=== PATIENT | female | born 1980 | race Caucasian/White ===

== ENCOUNTER 2016-09-30 04:08 | Emergency (ER) | payer BC ==
[~2016-09-30] VITALS: Ht 165.1 cm; Wt 99.8 kg
--- NOTE | ~2016-09-30 | CR72 ---
[facility]. [facility] A Service of [facility] RADIOLOGY TEXT RESULTS PATIENT: MIKAELA LEO LOCATION: SED : 80 UNIT #: [id number] AGE: [address]: Meg Burgess MD SEX: F ORDER DR: [id number] [place] [id number] MR#: [id number] Acc #: [id number] NAME: MIKAELA LEO : 1980 SEX: F STUDY DATE/TIME: 09/30/2016 04:52 UNIT: SED ROOM: STUDY DESCRIPTION: CR Chest Single View Portable Attending Physician: Meg Burgess M.D. Ordering Physician: Meg Burgess M.D. Primary Care Physician: Beny Rudd M.D. MEDICAL IMAGING REPORT This report is preliminary unless electronic signature is present. EXAM Portable chest, 09/30/2016 at 04:52 INDICATION Heart pounding with shortness of air and dizziness since 11 o'clock last night. COMPARISON 01/03/2016 FINDINGS A single AP portable view of the chest shows both lungs to be clear. The heart is normal in size. The mediastinal contour is normal. No significant bone abnormalities are seen. IMPRESSION Normal portable chest. Dictated by... Dalton Villalobos Jr., M.D. THIS IS AN ELECTRONICALLY VERIFIED REPORT Dalton Villalobos Jr., M.D. at 10/01/2016 3:15 AM [place] TD: 09/30/2016 22:06 JOB #: [id number] MEDICAL IMAGING REPORT Page 1 of 1
--- NOTE | ~2016-09-30 | EKG ---
PATIENT: MIKAELA LEO UNIT #: [id number] Ventricular Rate: 132 BPM Atrial Rate: 120 BPM QRS Duration: 78 ms Q-T Interval: 296 ms QTC Calculation(Bezet): 438 ms Calculated R [place]: 14 degrees Calculated T [place]: 0 degrees Diagnosis Line: Atrial fibrillation with rapid ventricular Diagnosis Line: response Diagnosis Line: Nonspecific ST abnormality , probably digitalis Diagnosis Line: effect Diagnosis Line: Abnormal ECG Diagnosis Line: When compared with ECG of 30-SEP-2016 04:10, Diagnosis Line: (unconfirmed) Diagnosis Line: No significant change was found Diagnosis Line: Confirmed by YVONNE COX MD ([id number]) on Diagnosis Line: 10/01/2016 10:00:32 PM INTERPRETING MD: CUCA
--- NOTE | ~2016-09-30 | EKG ---
PATIENT: MIKAELA LEO UNIT #: [id number] Ventricular Rate: 133 BPM Atrial Rate: 94 BPM QRS Duration: 76 ms Q-T Interval: 306 ms QTC Calculation(Bezet): 455 ms Calculated R [place]: 28 degrees Calculated T [place]: 4 degrees Diagnosis Line: Atrial fibrillation with rapid ventricular Diagnosis Line: response Diagnosis Line: Nonspecific ST abnormality , probably digitalis Diagnosis Line: effect Diagnosis Line: Abnormal ECG Diagnosis Line: When compared with ECG of 03-JAN-2016 14:37, Diagnosis Line: No significant change was found Diagnosis Line: Confirmed by YVONNE COX MD ([id number]) on Diagnosis Line: 10/01/2016 10:00:26 PM INTERPRETING MD: CUCA
--- NOTE | ~2016-09-30 | EKG ---
PATIENT: MIKAELA LEO UNIT #: [id number] Ventricular Rate: 92 BPM Atrial Rate: 92 BPM P-R Interval: 152 ms QRS Duration: 82 ms Q-T Interval: 342 ms QTC Calculation(Bezet): 422 ms P [place]: 30 degrees Calculated R [place]: 21 degrees Calculated T [place]: 19 degrees Diagnosis Line: Normal sinus rhythm Diagnosis Line: Normal ECG Diagnosis Line: When compared with ECG of 30-SEP-2016 05:30, Diagnosis Line: (unconfirmed) Diagnosis Line: Sinus rhythm has replaced Atrial fibrillation Diagnosis Line: Confirmed by YVONNE COX MD ([id number]) on Diagnosis Line: 10/01/2016 10:00:50 PM INTERPRETING MD: CUCA
[~2016-09-30 04:08] MED LIST: ALBUTEROL17 GM INH; AMOXICILLIN500 M1 PO; ASPIRIN81 MG PO; CEFDINIR300 MG PO; COUMADIN5 MG PO; DILTIAZEM 24HR180 MG PO; DYAZIDE 371 CAP 37.5 PO; HYCODAN60 ML 5MG/ PO; HYDROMET SYRUP480 ML PO; IRON1 TA1 PO; M.V.I. ADULT10 ML; METOPROLOL PO; PHENERGAN W/CO120 ML PO; PHENERGAN25 MG PO; PROVERA10 MG PO; STOOL SOFT & ST1 TAB; TENORMIN25 M1 PO; TRIAMTERENE-HCTZ PO; ULTRAM PO; XANAX0.5 M1 PO; ZITHROMAX PO
[2016-09-30 04:51] LABS: BASOPHIL% 0.6 % (0-2.5); EOSINOPHIL# 0.4 X10e3 (0-0.7); EOSINOPHIL% 5.6 % (0.0-7.0); HEMATOCRIT 39.9 % (35.0-45.0); HEMOGLOBIN 13.1 gm/dL (12.0-16.0); LYMPHOCYTE# 2.5 X10e3 (1.0-3.5); LYMPHOCYTE% 34.9 % (17.0-45.0); MEAN CELL VOLUME 82.7 FL (83-96); MEAN CORPUSCULAR HEMOGLOBIN 27.3 PG (28-34); MONOCYTE# 0.5 X10e3 (0-1.0); MONOCYTE% 6.9 % (3.0-12.0); NEUTROPHIL# 3.7 X10e3 (1.5-7.1); PLATELET COUNT 314 X10e3 (140-420); RED BLOOD COUNT 4.82 X10e (3.90-5.30); RED CELL DISTRIBUTION WIDTH 15.9 % (11.0-15.5); WHITE BLOOD COUNT 7.1 X10e3 (4.0-10.5)
[2016-09-30 04:55] LABS: DIFF IND NO
[2016-09-30 05:00] LABS: PROTHROMBIN TIME (PATIENT) 10.9 SECONDS (9.5-12.4)
[2016-09-30 05:07] LABS: PARTIAL THROMBOPLASTIN TIME 25.8 SECONDS (25.6-38.1)
[2016-09-30 05:08] LABS: POC - CKMB <1.0 ng/mL (0.0-7.9)
[2016-09-30 05:09] LABS: POC - TROPONIN <0.05 ng/mL (<=0.05)
[2016-09-30 05:09] LABS: ALBUMIN SERUM 3.7 g/dL (3.5-5.0); BILIRUBIN, DIRECT 0.1 mg/dL (0.0-0.2); BILIRUBIN,INDIRECT 0.4 mg/dL (0.0-0.9); BILIRUBIN,TOTAL 0.5 mg/dL (0.2-2.0); BUN/CREATININE RATIO 13.33; CALCIUM SERUM 8.5 mg/dL (8.4-10.2); CREATININE SERUM 0.9 mg/dL (0.6-1.4); GLOM FILT RATE Estimated 82.9 mL/min (>60); POTASSIUM 3.4 mmol/L (3.5-5.1); PROTEIN TOTAL SERUM 6.6 g/dL (6.0-8.3)
[2016-09-30 06:47] LABS: POC - CKMB <1.0 ng/mL (0.0-7.9); POC - TROPONIN <0.05 ng/mL (<=0.05)
== END 2016-09-30 07:22 | disposition home or self-care (01) ==
LOC: SED 04:08
PROVIDERS: Emergency Medicine
DX: I48.0 Paroxysmal atrial fibrillation (principal); E28.2 Polycystic ovarian syndrome; Z91.040 Latex allergy status; Z79.82 Long term (current) use of aspirin; Z79.899 Other long term (current) drug therapy
CPT/HCPCS: 36415; 71010; 80048; 80076; 82553; 83735; 84484; 84703; 85025; 85610; 85730; 92960; 93005; 99285; J1650